=== PATIENT | male | born 1950 | race Two or more races ===

== ENCOUNTER 2023-11-06 13:00 | Emergency (ER) | payer OTHER ==
[~2023-11-06] VITALS: Ht 177.8 cm; Wt 111.1 kg
[2023-11-06] MEDS ORDERED: COZAAR100 MG PO (13:34)
[2023-11-06] MEDS ORDERED: CELEBREX50 MG (13:34)
[2023-11-06] MEDS ORDERED: CLONIDINE HCL0.3 MG (13:35)
[2023-11-06 14:49] LABS: HEMOGLOBIN 15.2 g/dL (13-16.00); MEAN CELL VOLUME 95.2 fL (80.0-100.00); MEAN CORPUSCULAR HEMOGLOBIN 32.1 pg (27.00-32.0); MEAN CORPUSCULAR HGB CONC 33.7 g/dl (32.0-36.0); PLATELET COUNT 220 K/uL (150-450); RED BLOOD COUNT 4.73 M/uL (4.00-6.00); RED CELL DISTRIBUTION WIDTH 14.1 % (11.5-14.5)
== END 2023-11-06 15:27 | disposition home or self-care (01) ==
LOC: ER 13:02
DX: B34.9 Viral infection, unspecified (principal); R05.9 Cough, unspecified; Z20.822 Contact with and (suspected) exposure to COVID-19; I10 Essential (primary) hypertension